=== PATIENT | male | born 1985 | race Caucasian/White ===

== ENCOUNTER 2017-06-30 12:42 | Emergency (ER) | payer OTHER ==
[~2017-06-30] VITALS: Ht 175.3 cm; Wt 98.9 kg
--- NOTE | ~2017-06-30 | CR112 ---
[facility] A Service of [facility] RADIOLOGY TEXT RESULTS PATIENT: DARLINE WHITE LOCATION: [facility] : 89 UNIT #: [id number] AGE: [address]: Clover Kiran APRN SEX: M ORDER DR: [id number] [place], [place] [address] [id number] MR#: [id number] Acc #: [id number] NAME: DARLINE WHITE : 1985 SEX: M STUDY DATE/TIME: 06/30/2017 13:16 UNIT: [facility] ROOM: STUDY DESCRIPTION: CR Finger 2 View 4Th Lt Attending Physician: Clover Kiran A.P.R.N. Ordering Physician: Ed Mart Manuel M.D. Primary Care Physician: Primary Care Physician No MEDICAL IMAGING REPORT This report is preliminary unless electronic signature is present EXAM 3 views left fourth finger DATE 06/30/2017 HISTORY Swelling and inability to straighten the finger with pain, jammed finger while playing basketball 1 month ago. COMPARISON None FINDINGS No acute left fourth finger fracture or joint dislocation is identified. Mild soft tissue swelling is suggested around the proximal and phalangeal joint. IMPRESSION Soft tissue swelling about the left fourth finger proximal interphalangeal joint. No acute osseous abnormalities. Dictated by... Brianne Marin M.D. THIS IS AN ELECTRONICALLY VERIFIED REPORT Brianne Marin M.D. at 07/03/2017 8:52 AM [facility]/to TD: 06/30/2017 22:54 JOB #: [id number] MEDICAL IMAGING REPORT [facility] A Service of [facility] RADIOLOGY TEXT RESULTS PATIENT: DARLINE WHITE LOCATION: [facility] : 89 UNIT #: [id number] AGE: [address]: Clover Kiran APRN SEX: M ORDER DR: Page 1 of 1 COPY
== END 2017-06-30 13:57 | disposition home or self-care (01) ==
LOC: CFTX 12:42 → CED 12:42 → CFTX 13:55
DX: S93.515A Sprain of interphalangeal joint of left lesser toe(s), initial encounter (principal); Y93.61 Activity, american tackle football; Y92.009 Unspecified place in unspecified non-institutional (private) residence as the place of occurrence of the external cause
CPT/HCPCS: 29130; 73140; 99283